=== PATIENT | female | born 1965 | race Caucasian/White ===

== ENCOUNTER → 2017-01-15 | Outpatient (CLI) | payer OTHER ==
[~2017-01-15] MED LIST: ALIVE WOMEN'S1 EAC1 PO; HYDROCODON-ACE1 EAC4 PO; IMITREX50 MG PO; NORCO 10-325 T1 EACH PO; NORCO 5-325 TA1 EACH PO; OXYCONTIN EXTEN10 MG PO; PRILOSEC10 MG PO; SIMPLY SLEEP25 MG PO; SOMA350 MG PO; ULTRAM50 MG PO
== END | disposition disaster alternative care site (69) ==
LOC: GBCOE 13:03
DX: Z12.31 Encounter for screening mammogram for malignant neoplasm of breast (principal)
CPT/HCPCS: G0202

== ENCOUNTER 2017-02-27 21:02 | Emergency (ER) | payer OTHER ==
--- NOTE | ~2017-02-27 | ER ---
PATIENT'S NAME: ASHU CHRISTENSEN [facility] AGE: 51 Y [address] ROOM: [place] [address] LOCATION: [facility] ADMIT DATE: 02/27/2017 ER/Outpatient Report DISCHARGE DATE: 02/27/2017 FAMILY PHYSICIAN: Casandra Bailey MD ATTENDING PHYSICIAN: Patel Brown Time of Arrival: 2108 hours. Time of Exam: 5 hours. CHIEF COMPLAINT: Left jaw pain. HISTORY OF PRESENT ILLNESS: The patient states last night she was chasing her cat out the door when she slipped and missed a step and fell down off her porch landing on the concrete with her face first. States that she has had a lot of pain in the left jaw when she tends to chew. She denies having any loss of consciousness. She does have a small superficial laceration to the chin area that she states has bled off and on throughout the night. She has multiple abrasions to her face. She denies having any vision changes. Does not have any trouble swallowing. Denies having any neck pain. Does have some bruising to her knees but she states they do not hurt. ALLERGIES: LEVAQUIN. MEDICATIONS: Multivitamin. PAST MEDICAL HISTORY: Benign. PAST SURGICAL HISTORY: Fusion to her C-spine. SOCIAL HISTORY: Smokes and uses alcohol on occasional basis. Denies use of drugs. States she had drank some beers last night prior to the fall. REVIEW OF SYSTEMS: All negative other than those mentioned in the HPI. PHYSICAL EXAMINATION: VITAL SIGNS: She weighed 64.4 kg. Blood pressure is 140/73, pulse is 79, respirations 16, temperature of 98, O2 saturations 97% on room air. Abbi PATIENT'S NAME: ASHU CHRISTENSEN [facility] AGE: 51 Y [address] ROOM: [place] [address] LOCATION: [facility] ADMIT DATE: 02/27/2017 ER/Outpatient Report DISCHARGE DATE: 02/27/2017 FAMILY PHYSICIAN: Casandra Bailey MD ATTENDING PHYSICIAN: Patel Brown Coma Scale is 15. GENERAL: She is awake, alert, and oriented x4. SKIN: [place], warm, and dry. RESPIRATIONS: Even and nonlabored. Pupils are equal and reactive to light. Extraocular movement is intact. Negative nystagmus. Oropharynx is clear. Does not have any loose teeth. It is painful on the left TM area when she opens her mouth. She is tender to touch on the left lower jaw. Does have some bruising and swelling. She has multiple abrasions to her face, small superficial laceration to her chin. NECK: Supple. No lymphadenopathy. LUNGS: Lung sounds are clear throughout. HEART: Regular rate and rhythm. EXTREMITIES: She has bruising to bilateral knees. No pain with examination. She has strong pedal pulses. IMAGING: CT scan of the face and C-spine were completed. Radiologist reports the patient has a fracture of the neck of the left mandible. C-spine is okay. Dr. Chon Orozco was contacted. He would like the patient to see him in his office on Wednesday. IMPRESSION: Fracture of the left mandible. PLAN: Home rest. Liquid diet only. No chewing. No opening her mouth up wide. Prescription was written for Green for pain. She also should take ibuprofen 3 tabs four times a day routinely and she is to see Dr. Orozco on Wednesday. She and her friends with her verbalized understanding. She was given Green 5/325 x2 tablets prior to the CAT scan. She states that did help decrease the discomfort. RAAD ADAMS APRN FOR MD JESSE VELOZ/sean /[id number] d: 02/28/17 0135 t: 03/01/17 1821, OUTPATIENT REPORT
[~2017-02-27 21:02] MED LIST changes: -HYDROCODON-ACE1 EAC4 PO; -IMITREX50 MG PO; -NORCO 5-325 TA1 EACH PO
[2017-03-01] MEDS ORDERED: IMITREX50 MG PO (16:35)
[2017-03-01] MEDS ORDERED: HYDROCODON-ACE1 EAC4 PO (16:36)
[2017-03-02] MEDS ORDERED: NORCO 5-325 TA1 EACH PO (10:20)
== END 2017-02-27 22:12 | disposition disaster alternative care site (69) ==
LOC: GACC 21:02
DX: S02.609A Fracture of mandible, unspecified, initial encounter for closed fracture (principal); Z98.890 Other specified postprocedural states; Z88.1 Allergy status to other antibiotic agents; W18.00XA Striking against unspecified object with subsequent fall, initial encounter

== ENCOUNTER → 2017-03-02 | Day surgery (SDC) | payer OTHER ==
[~2017-03-02] VITALS: Ht 165.1 cm; Wt 61.6 kg
[~2017-03-02] MED LIST changes: +HYDROCODON-ACE1 EAC4 PO; +IMITREX50 MG PO; +NORCO 5-325 TA1 EACH PO
--- NOTE | ~2017-03-02 | OR ---
PATIENT'S NAME: ASHU CHRISTENSEN [facility] AGE: 51 Y [address] ROOM: [place] [address] LOCATION: [facility] ADMIT DATE: 03/02/2017 OR/Procedure Report DISCHARGE DATE: FAMILY PHYSICIAN: Casandra Bailey MD ATTENDING PHYSICIAN: BEULAH ESTRADA SURGEON: Beulah Estrada MD SENIOR HR GENERALIST: None. DATE OF PROCEDURE: 03/02/2017 PREOPERATIVE DIAGNOSIS: Left mandible condylar neck fracture. POSTOPERATIVE DIAGNOSIS: Left mandible condylar neck fracture. PROCEDURE: Maxillomandibular fixation, closed. ANESTHESIA: General endotracheal. COMPLICATIONS: None. SPECIMENS: None. BLOOD LOSS: 5 mL. INDICATIONS: The patient is a 51-year-old female, who suffered a fall resulting in fracture of her chin and left condylar neck fracture. We discussed closed reduction with maxillomandibular fixation with wires, and she provided informed consent after discussing risks, benefits, and alternatives. DESCRIPTION OF PROCEDURE: The patient was brought to the operative suite and placed on the table in supine position. All pressure points were padded. Time-out was performed correctly identifying the patient and procedure. Nasotracheal intubation was performed, and the patient was draped. Injection of 1% lidocaine with epinephrine was performed along the upper and lower gingiva. The Electro[employer] Hybrid MMF set was utilized. The thin plates were formed to the upper and lower jaws, these were screwed into place using a combination of 6 mm and 8 mm screws transgingival into the bone. These were fastened to avoid tooth roots. After this, 24-gauge wires were used to achieve maximum mandibular fixation holding the jaw in occlusion. The patient was missing several molars left and right; however, using the remaining teeth where facet occlusion was obtained without difficulty. The mouth was irrigated with saline and suctioned clean. Ointment was applied to chin and upper lip abrasions. These were present preoperatively. This concluded the case. The patient was returned to the care of Anesthesia for extubation and transferred to the recovery room in stable condition. PATIENT'S NAME: ASHU CHRISTENSEN [facility] AGE: 51 Y [address] ROOM: [place] [address] LOCATION: [facility] ADMIT DATE: 03/02/2017 OR/Procedure Report DISCHARGE DATE: FAMILY PHYSICIAN: Casandra Bailey MD ATTENDING PHYSICIAN: BEULAH ESTRADA BEULAH ESTRADA MD MJ/modl /[id number] d: 03/02/17 0950 t: 03/04/17 1102, OPERATIVE SUMMARY
== END | disposition disaster alternative care site (69) ==
LOC: GPOC 03-01 16:00 → GSDC 05:29
PROC: 0NSV34Z Reposition Left Mandible with Internal Fixation Device, Percutaneous Approach (ICD-10-PCS; principal; 2017-03-02)
DX: S02.612A Fracture of condylar process of left mandible, initial encounter for closed fracture (principal); F17.210 Nicotine dependence, cigarettes, uncomplicated; G43.909 Migraine, unspecified, not intractable, without status migrainosus; Z88.1 Allergy status to other antibiotic agents; Z98.1 Arthrodesis status; Z90.710 Acquired absence of both cervix and uterus; W19.XXXA Unspecified fall, initial encounter
CPT/HCPCS: A9270; C1713; J0690; J2001; J3010; J7120